=== PATIENT | male | born 2000 | race Two or more races ===

== ENCOUNTER 2025-07-17 15:01 | Emergency (ER) | payer MEDICAID, OTHER ==
[~2025-07-17] VITALS: Ht 170.2 cm; Wt 87.8 kg
[2025-07-17] MEDS ORDERED: METOCLOPRAMIDE HCL 5MG/ml INJ 2ml VIAL IV ONE (15:45)
[2025-07-17 16:08] LABS: Hematocrit 50.6 % (41.0-53.0); Hemoglobin 17.3 g/dL (13.5-17.5); Mean Corpuscular Hemoglobin 28.8 pg (28.0-32.0); Mean Corpuscular Volume 84.3 fL (80.0-100.0); Nucleated Red Blood Cells % 0.1 %
[2025-07-17 16:14] LABS: Chloride 103 mmol/L (98-107); Potassium 3.8 mmol/L (3.5-5.1); Sodium 139 mmol/L (136-145)
[2025-07-17 16:15] LABS: Anion Gap 10 (5-15); Carbon Dioxide 26 mmol/L (20-31)
[2025-07-17 16:16] LABS: Calcium 9.6 mg/dL (8.7-10.4)
[2025-07-17 16:20] LABS: BUN/Creatinine Ratio 8.5 (10.0-20.0); Blood Urea Nitrogen 11 mg/dL (9-23)
[2025-07-17 16:21] LABS: Lipase 41 U/L (12-53)
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
[2025-07-17 16:23] VITALS: PULSE 100; RESP 18; O2SAT 98
[2025-07-17 16:31] LABS: Glucose 112 mg/dL (74-106)
[2025-07-17] MEDS: SODIUM CHLORIDE 0.9% 1,000 ML IV ONE (16:56)
[2025-07-17] MEDS: ONDANSETRON HCL 4 MG/2 ML VIAL IV ONE (17:08)
[2025-07-17] MEDS: HYDROmorphone HCL 2 MG/ML VL/or syr IV ONE (17:11)
--- NOTE | 2025-07-17 17:43 | DVH ---
EXAM: CT CT AB PEL WITH IV CON ONLY History: Acute epigastric pain Comparison Study: None TECHNIQUE: Multidetector CT of the abdomen and pelvis with IV contrast. Axial, coronal and sagittal multiplanar reformats were obtained from the axial data set by the technologist. Radiation Dose Information: CT Dose: CTDI volume is 14.79 mGy. Dose-length product is 875.9 mGy*cm FINDINGS: Lung bases are clear. Partially visualized heart is unremarkable. Hepatomegaly with Hepatic steatosis. Otherwise, Liver, spleen, gallbladder, pancreas and adrenal glands are unremarkable. Kidneys, ureters and urinary bladder are unremarkable. Prostate is unremarkable. Gastric wall thickening. Wall thickening of Proximal small bowel loops. The remainder of the small bowel loops are unremarkable. Appendix is unremarkable. Hyperdense material within the Appendix which may represent Ingested material postsurgical changes of the Sigmoid with left lower abdominal quadrant ostomy. The large bowel is otherwise unremarkable. No evidence of Intraperitoneal free air or free fluid. No evidence of aortic aneurysm or dissection. No significant lymphadenopathy. Postsurgical changes of midline ventral abdomen small fat containing periumbilical hernias. No evidence of acute osseous abnormalities. IMPRESSION: Wall thickening of stomach and proximal small bowel loops. Correlate for gastroenteritis. Postsurgical changes of the sigmoid with Left lower abdominal quadrant ostomy. Hepatomegaly with hepatic steatosis.
[2025-07-17] MEDS: IOHEXOL 300 MG/ML 100ML BOTTLE IJ ONE (17:51)
[2025-07-17] MEDS ORDERED: FAMO20TA10 PO (19:11)
[2025-07-17] MEDS ORDERED: ALUMCHW6 PO (19:11)
[2025-07-17 19:58] VITALS: BP 141/63; TEMP 97.9
[2025-07-17 20:00] VITALS: PULSE 89; RESP 18; O2SAT 99
== END 2025-07-17 19:57 | disposition home or self-care (01) ==
LOC: ER 15:01
DX: R10.13 Epigastric pain (principal); K29.70 Gastritis, unspecified, without bleeding; K76.0 Fatty (change of) liver, not elsewhere classified; F17.210 Nicotine dependence, cigarettes, uncomplicated; Z93.3 Colostomy status
CPT/HCPCS: 36415; 74177; 80048; 83690; 85025; 96361; 96374; 96375; 99285; J1171; J2405; J7030; Q9967